=== PATIENT | male | born 1990 | race Caucasian/White ===

== ENCOUNTER 2016-10-27 22:49 | Emergency (ER) | payer MEDICAID ==
[~2016-10-27] VITALS: Ht 167.6 cm; Wt 72.6 kg
[2016-10-27 22:55] VITALS: BP 102/85
--- NOTE | 2016-10-27 23:05 | NUR ---
JANETT SALINAS CONTACTED. [employer] STATED THAT PD WILL SEND SOME ONE TO INVESTIGATE.
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
[2016-10-28 01:00] VITALS: BP 115/75
--- NOTE | 2016-10-28 01:00 | NUR ---
Patient discharged with v/s stable. Written and verbal after care instructions given and explained INTERPRETED BY THE JANETT SALINAS. Patient verbalized understanding. Ambulatory with steady gait. All questions addressed prior to discharge. Advised to follow up with PMD WITH PRESCRIPTION OF MOTRIN. ACCORDING TO ALESSIO AN AND JANETT SALINAS, PATIENT CAN GO HOME.
== END 2016-10-28 01:00 | disposition home or self-care (01) ==
LOC: MED 22:49
DX: S21.102A Unspecified open wound of left front wall of thorax without penetration into thoracic cavity, initial encounter (principal); R03.0 Elevated blood-pressure reading, without diagnosis of hypertension; W45.8XXA Other foreign body or object entering through skin, initial encounter; Y93.89 Activity, other specified; Y92.89 Other specified places as the place of occurrence of the external cause; Y99.8 Other external cause status